=== PATIENT | female | born 1990 | race Caucasian/White ===

== ENCOUNTER 2017-10-12 00:13 | Emergency (ER) | payer OTHER, MEDICAID | END 2017-10-12 02:43 | disposition home or self-care (01) | LOC: M ED 00:13 | DX: Z04.1 Encounter for examination and observation following transport accident (principal); O99.333 Smoking (tobacco) complicating pregnancy, third trimester; F17.200 Nicotine dependence, unspecified, uncomplicated; Z3A.34 34 weeks gestation of pregnancy; Z88.5 Allergy status to narcotic agent; Z88.8 Allergy status to other drugs, medicaments and biological substances | CPT/HCPCS: 71045 ==

== ENCOUNTER 2018-02-28 02:53 | Emergency (ER) | payer MEDICAID, OTHER ==
[~2018-02-28] VITALS: Ht 157.5 cm; Wt 83.6 kg
[~2018-02-28 02:53] MED LIST: PRENTAB7 PO
[2018-02-28] MEDS ORDERED: IBUP80TA PO (02:57)
[2018-02-28] MEDS ORDERED: NORC1TAB4 PO (02:57)
[2018-02-28 04:10] LABS: BASO % 0.4 % (0.0-1.0); EOS # 0.2 10^3/uL (0.0-0.50); HEMATOCRIT 45.4 % (36.0-47.0); HEMOGLOBIN 15.7 g/dl (12.0-15.5); LYMPH # 4.3 10^3/uL (1.5-6.5); LYMPH % 38.2 % (24.0-44.0); MEAN CORPUSCULAR HEMOGLOBIN 30.4 pg (27.0-33.0); MEAN CORPUSCULAR HGB CONC 34.6 g/dl (32.0-36.5); MONO # 0.8 10^3/uL (0.0-0.8); MONO % 6.9 % (0.0-5.0); NEUTROPHILS # 5.9 10^3/uL (1.8-7.7); NEUTROPHILS % 52.1 % (36.0-66.0); PLATELET COUNT, AUTOMATED 282 10^3/uL (150-450); RED BLOOD COUNT 5.16 10^6/uL (4.00-5.40); WHITE BLOOD COUNT 11.2 10^3/uL (4.0-10.0)
[2018-02-28] MEDS ORDERED: METHOCARBAMOL 1,000 MG/10 ML VIAL (J2800) IV ONE (04:30)
[2018-02-28] MEDS ORDERED: ONDANSETRON 4MG/2ML VIAL (J2405) IV ONE (04:30)
[2018-02-28] MEDS ORDERED: KETOROLAC 30 MG/ML VIAL (J1885) IV ONE (04:30)
[2018-02-28] MEDS ORDERED: MORPHINE 4 MG/ML 1ML VIAL/SYRINGE (J2270) IV PRN (04:30)
[2018-02-28 04:37] LABS: BLOOD UREA NITROGEN 15 MG/DL (7-18); C REACTIVE PROTEIN QUANTITATIV < 0.30 MG/DL (0.00-0.30); CALCIUM LEVEL 8.8 MG/DL (8.5-10.1); CARBON DIOXIDE LEVEL 24 MEQ/L (21-32); CHLORIDE LEVEL 107 MEQ/L (98-107); CREATININE FOR GFR 0.67 MG/DL (0.55-1.30); GLOMERULAR FILTRATION RATE > 60.0 (>60); GLUCOSE, FASTING 108 MG/DL (70-100); POTASSIUM SERUM 4.1 MEQ/L (3.5-5.1); SODIUM LEVEL 139 MEQ/L (136-145)
[2018-02-28 04:39] LABS: ERYTHROCYTE SEDIMENTATION RATE 3 mm/hr (0-20)
[2018-02-28] MEDS ORDERED: PROHANCE 279.3MG/ML 5ML VIAL (A9576) As Ordered ONE (07:18)
[2018-02-28] MEDS ORDERED: PROHANCE 279.3MG/ML 15ML VIAL (A9576) As Ordered ONE (07:18)
[2018-02-28] MEDS ORDERED: METOCLOPRAMIDE INJ 10MG/2ML VIAL (J2765) IV ONE (08:00)
[2018-02-28] MEDS ORDERED: GABA-1171 PO (08:28)
[2018-02-28] MEDS ORDERED: CYCL5TAB PO (08:29)
[2018-02-28 08:42] LABS: HCG, SERUM QUALITATIVE NEGATIVE (NEGATIVE)
--- NOTE | 2018-02-28 09:55 | REP ---
MRI lumbar spine without and with contrast: Repeat dictation. Preliminary report is provided at time of exam by virtual radiology. History: Low back pain. Recent epidural injections. Rule out abscess. Gadolinium enhancement dose: 16 ml of intravenous ProHance. Technique: Sagittal and axial T1 and T2-weighted scans are acquired in the usual fashion with and without fat saturation. Sequences include spin echo, turbo spin-echo, and STIR imaging sequences. MRI findings: There is straightening of the normal lumbar lordosis. Cortical and medullary bone signal intensity are normal. Conus is normal in position and appearance at the L1 level. No extra spinal abnormality is observed. Disc spaces are maintained at each level except L4-5. At the L4-5 level, there is disc narrowing and decreased signal intensity. There is a moderate-sized right paracentral focal disc protrusion with a right caudally extruded fragment. This fragment measures 6 x 4 mm. There is mild contrast enhancement adjacent to the disc fragment and disc protrusion. There is compression of the right ventral margin of the thecal sac in the right L5 root sleeve. There is no evidence to suggest epidural abscess or other abnormal fluid collection. No other abnormal gadolinium enhancement is seen. Other disc levels are unremarkable. Impression: Moderate size right paracentral disc protrusion at L4-5 with a right caudally extruded 6 mm disc fragment producing thecal sac and right L5 root compression. No abnormal fluid collection seen. Electronically Signed by Maxi Kay MD 02/28/2018 09:47 A
[2018-02-28 10:21] VITALS: BP 91/55
--- NOTE | 2018-02-28 11:04 | ER ---
DATE OF CONSULTATION: 02/28/2018 CHIEF COMPLAINT: Worsening right back and leg pain following epidural injection. HISTORY OF PRESENT ILLNESS: This is a 27-year-old female who was seen today for a 3-1/2-day history of worsening back and leg pain following an epidural steroid injection. She has a chronic right L4-5 paracentral disc that was causing some back and primarily leg dominant decreased sensation and pain. She was not managing her pain at home, so she came in to the [facility] emergency department (ED). She was not complaining about problems with loss of control of bowel or urinary retention. The leg pain has slightly worsened but is feeling better now that she has had some pain control in the emergency department. She does feel hot and a little bit nauseous, but overall there has not been any fever, chills, or night sweats, or other constitutional symptoms. She is still ambulatory. She is currently breast-feeding. She has a new baby. PAST MEDICAL HISTORY: Asthma. Obesity. Borderline hypoglycemic. MEDICATIONS: - acetaminophen/hydrocodone - as well as ibuprofen ALLERGIES: Are listed as CINNAMON, MUSHROOM, LACTOSE, OXYCODONE. SURGICAL HISTORY: (C) section. SOCIAL HISTORY: She is here today with her "friend." PHYSICAL EXAMINATION: Vital signs: 97.6 temperature orally, blood pressure 105/59, mean arterial pressure (MAP) of 74, pulse rate 80, respiratory rate 14, 95% on room air. Her prior temperature when she came in at 2:53 in the morning was 96.8. When I saw her, she was ambulating back from the washroom. She was doing this without difficulty. On inspection of her lumbar spine, there is no obvious deformity, ecchymosis, or redness. There is the previous puncture site from the epidural steroid injection that is in about the thoracolumbar junction, and I see no redness, drainage, swelling, or other signs of an infection. Palpation revealed some mild tenderness at that site and down the right paraspinal musculature into the buttock. Nothing on the left side. Nothing in her cervical spine or lumbar spine. There is no obvious fluctuance at this site. There is only mild tenderness to percussion of her lumbar spine. Sensation was diminished throughout the right lower extremity from L2 to S1, but this was consistent with how this has been for the last at least week for her. Normal in the left side, 2/2 L2 to S1. Strength was 5/5 L2 to S1 in the left lower extremity. It was 4+/5 in the entire right lower extremity from L2 to S1. No clonus. Plantars equivocal. Reflexes 2+ and symmetric at the knees and ankles. INVESTIGATIONS: Blood work: WBC 11.2, ESR 3, and CRP under 0.3. Radiographic imaging was reviewed. This was an MRI of her lumbar spine. She apparently did have a previous MRI done about a week ago at a place in [place] that showed a right paracentral L4-5 disc herniation. I am unable to see those images. Now I reviewed the images, as well as seeing the radiologist's report. I agree that there is a right paracentral L4-5 moderate-sized disc bulge with superimposed central/right paracentral disc herniation. There is also a 6 x 4 mm focus low signal abnormality in the right ventral epidural space at the L5 level just inferior to the disc space. I believe that this represents more of a continuation or worsening of her disc bulge and not necessarily a fluid signal abnormality, although it may represent this, given the recent epidural steroid injection. Also, her mandi-anal sensation from S2 to S4 was normal. She had normal rectal tone and normal positive deep anal pressure. No blood on rectal examination. ASSESSMENT AND PLAN: I reviewed the clinical status, MRI imaging; and blood work with this patient. There was a concern for epidural abscess, but I do not think that is case given the laboratory work, minimal constitutional symptoms, and MRI appearance. I counseled the patient as to red-flag symptoms that she should watch out for and when to return. I also talked to Dr. Barbosa, who reviewed the images, and he agrees with the plan. We will achieve pain control while in the emergency department and try to discharge the patient home on oral pain medications. Followup with Dr. Barbosa in a week for the radicular right-sided leg symptoms. [place]
== END 2018-02-28 10:30 | disposition home or self-care (01) ==
LOC: M ED 02:53
DX: M51.06 Intervertebral disc disorders with myelopathy, lumbar region (principal); M54.5 Low back pain; M79.604 Pain in right leg; J45.909 Unspecified asthma, uncomplicated; F17.210 Nicotine dependence, cigarettes, uncomplicated; Z91.018 Allergy to other foods; Z91.011 Allergy to milk products; Z88.5 Allergy status to narcotic agent
CPT/HCPCS: 72158; 80048; 84703; 85025; 85652; 86140; 87040; 96374; 96375; 99284; A9576; J1885; J2405; J2765; J2800